=== PATIENT | female | born 1970 | race Caucasian/White ===

== ENCOUNTER 2017-12-03 17:40 | Emergency (ER) | payer OTHER ==
[~2017-12-03] VITALS: Ht 165.1 cm; Wt 97.2 kg
[2017-12-03 19:58] LABS: HEMATOCRIT 39.9 % (36.0-46.0); HEMOGLOBIN 13.2 G/DL (11.9-15.5); MCH 29.7 PG (29.0-34.0); MCHC 33.1 G/DL (30.0-36.0); MCV 89.7 FL (83-99); PLATELET COUNT 237 K/uL (156-360); RBC DIS.WIDTH-CV 13.3 % (11.8-14.6); RBC DIS.WIDTH-SD 44.1 % (39-53); RED BLOOD COUNT 4.45 M/uL (3.80-5.20); WHITE BLOOD COUNT 11.8 K/uL (4.1-10.2)
[2017-12-03 20:08] LABS: ALBUMIN 3.9 g/dL (3.2-4.8); CHLORIDE 107 mEq/L (99-109); POTASSIUM 3.6 mEq/L (3.7-5.4); SODIUM 140 mEq/L (136-147)
[2017-12-03 20:10] LABS: GLUCOSE 88 mg/dL (70-99); TOTAL PROTEIN 6.5 g/dL (6.4-8.3)
[2017-12-03 20:12] LABS: TOTAL BILIRUBIN 0.3 mg/dL (0.0-1.0)
[2017-12-03 20:14] LABS: ALKALINE PHOSPHATASE 76 IU/L (3-129); CREATININE 0.8 mg/dL (0.6-1.3); GFR ESTIMATE (CALCULATED) > 59 mL/min/
[2017-12-03 20:15] LABS: UREA NITROGEN (BUN) 11 mg/dL (9-23)
[2017-12-03 20:16] LABS: AST (GOT) 11 IU/L (2-34)
[2017-12-03 20:17] LABS: ALT (GPT) 9 IU/L (3-49); LIPASE 9 U/L (1.0-51.0)
[2017-12-03 20:35] LABS: APPEARANCE SL.HAZY ((CLEAR)); BILIRUBIN NEGATIVE; BLOOD NEGATIVE; COLOR YELLOW ((YELLOW)); GLUCOSE (STRIP) NEGATIVE; KETONES 5; LEUKOCYTES NEGATIVE; NITRITE NEGATIVE; PROTEIN (STRIP) NEGATIVE; SPECIFIC GRAVITY 1.025 (1.000-1.030); UROBILINOGEN 0.2 MG/DL (0.2-1.0)
[2017-12-03 20:50] LABS: BACTERIA RARE /HPF; EPITHELIAL CELLS 2+ /HPF; MUCUS 2+ /LPF; UCUL ADDED? NO; WHITE BLOOD CELLS 0-5 /HPF (0-5)
[2017-12-03] MEDS ORDERED: ZANTAC300 MG PO (22:42)
[2017-12-03] MEDS ORDERED: MEDROL DOSEPAK4 MG PO (22:42)
[2017-12-03 23:59] VITALS: BP 149/91
== END 2017-12-04 00:01 | disposition home or self-care (01) ==
LOC: EME 17:40
PROVIDERS: Physician Assistant
DX: M51.26 Other intervertebral disc displacement, lumbar region (principal); R10.9 Unspecified abdominal pain; N81.6 Rectocele; Z90.710 Acquired absence of both cervix and uterus
CPT/HCPCS: 71260; 72132; 80053; 81003; 83690; 85027; 99281; 99285; J7030